=== PATIENT | female | born 1960 | race Caucasian/White ===

== ENCOUNTER 2018-10-28 19:25 | Emergency (ER) | payer SELFPAY ==
[~2018-10-28] VITALS: Ht 167.6 cm; Wt 73.0 kg
[2018-10-28] MEDS ORDERED: LEVSOD100 PO (21:05)
[2018-10-28] MEDS ORDERED: PSEU120ER PO (21:22)
== END 2018-10-28 21:35 | disposition home or self-care (01) ==
LOC: ER 19:25
DX: J32.9 Chronic sinusitis, unspecified (principal); Z88.5 Allergy status to narcotic agent
CPT/HCPCS: 99283